=== PATIENT | male | born 1985 | race Caucasian/White ===

== ENCOUNTER 2016-11-04 14:57 | Emergency (ER) | payer SELFPAY ==
[2016-11-04 14:58] LABS: BASOPHIL% 0.7 % (0-2.5); EOSINOPHIL# 0.2 X10e3 (0-0.7); EOSINOPHIL% 3.6 % (0.0-7.0); HEMATOCRIT 39.6 % (38.0-50.0); HEMOGLOBIN 13.4 gm/dL (13.0-16.0); LYMPHOCYTE% 32.1 % (17.0-45.0); MEAN CELL VOLUME 92.5 FL (83-96); MEAN CORPUSCULAR HEMOGLOBIN 31.1 PG (28-34); MEAN CORPUSCULAR HGB CONC 33.7 g/dL (30-36); MEAN PLATELET VOLUME 8.8 FL (6.5-11.5); MONOCYTE# 0.6 X10e3 (0-1.0); NEUTROPHIL# 3.4 X10e3 (1.5-7.1); NEUTROPHIL% 54.6 % (40-75); PLATELET COUNT 231 X10e3 (140-420); RED BLOOD COUNT 4.29 X10e (3.90-5.60); RED CELL DISTRIBUTION WIDTH 13.2 % (11.0-15.5); WHITE BLOOD COUNT 6.3 X10e3 (4.0-10.5)
[2016-11-04 15:01] LABS: DIFF IND NO
[2016-11-04 15:20] LABS: ALKALINE PHOSPHATASE 85 U/L (32-92); ALT (SGPT) 17 U/L (10-40); AST (SGOT) 19 U/L (10-42); BILIRUBIN, DIRECT 0.1 mg/dL (0.0-0.2); BILIRUBIN,INDIRECT 0.5 mg/dL (0.0-0.9); BILIRUBIN,TOTAL 0.6 mg/dL (0.2-2.0); BLOOD UREA NITROGEN 13 mg/dL (9-23); BUN/CREATININE RATIO 18.57; CALCIUM SERUM 8.7 mg/dL (8.4-10.2); CARBON DIOXIDE 26 mmol/L (22-31); CHLORIDE 106 mmol/L (100-111); CREATININE SERUM 0.7 mg/dL (0.6-1.4); GLOM FILT RATE Estimated 127.6 mL/min (>60); GLUCOSE FASTING 92 mg/dL (70-110); POTASSIUM 3.9 mmol/L (3.5-5.1); PROTEIN TOTAL SERUM 6.6 g/dL (6.0-8.3); SODIUM 139 mmol/L (135-145)
[2016-11-04 15:24] LABS: ALCOHOL BLOOD <5 mg/dL (0)
[2016-11-04 15:25] LABS: URINE SOURCE CLEAN CATCH
[2016-11-04 15:35] LABS: URINE APPEARANCE TURBID; URINE BILIRUBIN NEG (NEG); URINE BLOOD NEG (NEG); URINE COLOR YELLOW; URINE GLUCOSE NEG (NEG); URINE KETONE NEG (NEG); URINE LEUKOCYTE ESTERASE NEG (NEG); URINE NITRATE NEG (NEG); URINE PH 7.5 (5-8); URINE PROTEIN NEG (NEG); URINE SPECIFIC GRAVITY 1.019 (1.003-1.035); URINE UROBILINOGEN 0.2 MG/DL (NEG)
[2016-11-04 15:41] LABS: CULTURE INDICATED? NO
[2016-11-04 15:45] LABS: AMPHETAMINE NEG (NEG); BARBITURATES NEG (NEG); BENZODIAZEPINES NEG (NEG); COCAINE NEG (NEG); MARIJUANA NEG (NEG); OPIATES NEG (NEG); TRICYCLIC ANTIDEPRESSANTS NEG (NEG); U METHADONE NEG (NEG)
== END 2016-11-04 19:04 | disposition short-term general hospital (02) ==
LOC: CED 14:57
PROVIDERS: Emergency Medicine
DX: F23 Brief psychotic disorder (principal); F17.200 Nicotine dependence, unspecified, uncomplicated; Z90.49 Acquired absence of other specified parts of digestive tract; Z98.890 Other specified postprocedural states
CPT/HCPCS: 36415; 80048; 80076; 80307; 81003; 85025; 99285; G0480

== ENCOUNTER 2016-11-04 21:19 | Inpatient (IN) | payer OTHER ==
--- NOTE | ~2016-11-04 | PA ---
Unit #: [id number] #: [id number] Patient: FOUZIA DOUGHERTY [id number] [facility] [address] [place] [address] [id number] MR#: [id number] NAME: FOUZIA DOUGHERTY ROOM: 31 Age: 31 Sex: M Admission Date: 11/04/2016 : 1985 Date of Assessment: Attending Physician: Nate Rivera M.D. Admitting Physician: Nate Rivera M.D. PSYCHIATRIC ASSESSMENT INFORMANTS The patient reliability, fair informant and chart reliability, good. CHIEF COMPLAINT Suicidal ideation with plan. HISTORY OF PRESENT ILLNESS Fouzia Dougherty is a 31-year-old male, seen on , presented with the above-mentioned complaint. The patient was brought by police, found at [employer] parking lot. Reported that he is homeless and unemployed. The patient reported he came here about 2 weeks ago from [place]. The patient's mother, sister, and 2 children are in [place]. The patient reported not knowing his dad. The patient has a tox screen clear and unclear about any use of any drugs. The patient would laugh inappropriately, guarded, and paranoid. Possibly, he has a history of schizophrenia, bipolar disorder, and psychosis. The patient stated that he was diagnosed at [facility] a long time ago. The patient used the phrase long time ago frequently. The patient's thoughts were somewhat disorganized, guarded, and paranoid. The patient reported that he abused his dog as a child by hitting him and choking him. The patient's thoughts were somewhat circumstantial, guarded, paranoid, disorganized behavior, and psychotic symptoms and needing admission at this time for psychiatric stabilization. The patient was placed on 72-hour hold. PAST PSYCHIATRIC HISTORY Unremarkable. FAMILY HISTORY AND SOCIAL HISTORY Unavailable at this time. Poor support system. Moved from [place], according to the intake reports. Family psychiatric illness unknown. MEDICAL HISTORY Unremarkable for any chronic medical illness. Musculoskeletal; muscle strength and tone, no atrophy or abnormal movement. Gait normal. MEDICATION HISTORY None. ALLERGIES No known drug allergies. SUBSTANCE ABUSE HISTORY History of using opioids and methamphetamine at age 31. Unit #: [id number] #: [id number] Patient: FOUZIA DOUGHERTY REVIEW OF SYSTEMS HEENT: Eyes, clear. Ears, nose, mouth, and throat; clear. CARDIOVASCULAR: Unremarkable. RESPIRATORY: Unremarkable. GI: Unremarkable. : Unremarkable. SKIN: Unremarkable. LYMPH NODE: Unremarkable. NEUROLOGIC: Unremarkable. ENDOCRINE: Unremarkable. HEMATOLOGIC: Unremarkable. ALLERGIC/IMMUNOLOGIC: Unremarkable. MUSCULOSKELETAL: Muscle strength and tone, no atrophy or abnormal movement. Gait normal. MENTAL STATUS EXAMINATION CONSTITUTIONAL: Measurement of vital signs; temperature 97.7, heart rate 70, respiratory rate 18, oxygen saturation 100%, and blood pressure 108/59. Height 5 feet 7 inches and weight 134 pounds. GENERAL APPEARANCE: Hygiene and grooming, dressed in hospital attire. The patient did not show any facial deformity. MUSCULOSKELETAL: Please see above. PSYCHIATRIC EXAMINATION Description of speech, slow. Description of thought process, circumstantial. Description of association; guarded, paranoid, mood lability, disorganized speech and thought process, and paranoid. Denied any thoughts of harming self or others. Description of the patient's judgment: Concerning everyday activity, poor. Social situation, poor. Concerning psychiatric condition, poor. Complete mental status examination; oriented in place and person. Attention span and concentration, poor. Language, able to name object and repeat phrases. Fund of knowledge, poor. Vocabulary, fair. Mood and affect, sad and dysphoric. Insight and judgment, impaired. ASSETS AND LIABILITIES Assets, the patient is articulate and able to take care of his ADL with prompts. Liability, history of psychosis and depression. ADMITTING DIAGNOSES Psychiatric: Psychosis, not otherwise specified, F29.0; rule out schizophrenia, F20.0; and rule out bipolar mood disorder, F31.89. Secondary diagnosis: Deferred. Medical diagnosis: None. Stressors: Psychosocial stressors, homelessness, and poor support system. PSYCHIATRIC PLAN AND TREATMENT GOAL AND DISCHARGE PLAN 1. Advised to admit the patient on the inpatient unit. Provide safe, supportive, and structured environment. 2. Ordered labs; CBC, CMP, UA, and UDS. 3. Precaution for psychosis. 4. The patient to be started on Zyprexa and Cogentin combination and trazodone for sleep. The patient to attend all the programing, group Unit #: [id number] #: [id number] Patient: FOUZIA DOUGHERTY therapy, individual therapy, and structured milieu. TREATMENT GOAL To attain euthymic mood, gain insight into his problem, and learn coping skills. DISCHARGE PLAN Plan to stabilize the patient and consider followup in outpatient program. ESTIMATED LENGTH OF STAY 3 to 5 days. Dictated by... Maria Antonia Baptiste/virgilio TD: 11/05/2016 16:04 JOB #: [id number] PSYCHIATRIC ASSESSMENT Page 1 of 1 X Nate Rivera MD X PSYCHIATRIC ASSESSMENT
--- NOTE | ~2016-11-04 | HP ---
Unit #: [id number] #: [id number] Patient: FOUZIA HICKEY [id number] [place] [address] [id number] MR#: [id number] NAME: FOUZIA HICKEY ROOM: P131 Age: 31 Sex: M Admission Date: 11/04/2016 : 1985 Attending Physician: Nate Rivera M.D. Admitting Physician: Nate Rivera M.D. Primary Care Physician: Primary Care Physician No HISTORY AND PHYSICAL HISTORY OF PRESENT ILLNESS Fouzia is a 31 year old admitted to [address] [place] [address] after he was found naked at [facility]. PAST MEDICAL HISTORY Nothing significant. PAST SURGICAL HISTORY Nothing reported. ALLERGIES Penicillin, Haldol, Thorazine. SOCIAL HISTORY Smokes 1 pack per day. Drinks alcohol frequently and has a history of illicit substance abuse to include amphetamines, opioids and crack cocaine. He also uses drugs IV. FAMILY HISTORY Medically noncontributory. REVIEW OF SYSTEMS He does not answer questions appropriately. There are no reports of nausea, vomiting or diarrhea. He has had no cough or increased temperature. CURRENT MEDICATIONS 1. Milk of Magnesia p.r.n. 2. Maalox p.r.n. 3. Tylenol p.r.n. 4. Trazodone 75 mg q.h.s. 5. Cogentin 1 mg b.i.d. 6. Zyprexa 10 mg b.i.d. PHYSICAL EXAMINATION GENERAL: Alert, well-nourished, in no apparent distress. VITAL SIGNS: Blood pressure 110/60, heart rate 80, respirations 16, temperature 98.6. WEIGHT: 134. HEIGHT: 5 feet 7 inches. SKIN: Warm and dry without rash or lesion. HEENT: Normocephalic. TMs not viewed. Oral and nasal passages clear. Conjunctivae clear. PERRLA. EOMs intact. NECK: Supple without lymphadenopathy or thyromegaly. Unit #: [id number] #: [id number] Patient: FOUZIA HICKEY HEART: Regular rate and rhythm without murmur. LUNGS: Clear. ABDOMEN: Soft, nontender. : Not done. EXTREMITIES: No evidence of cyanosis, clubbing or edema. Moves all without focal deficit. NEUROLOGICAL: Grossly within normal limits. Cranial Nerves: II: Visual mandujano are intact. III, IV AND : Extraocular movements are intact. Pupils are equal, round and reactive to light. V: Facial sensation is grossly normal. VII: Facial movements and expression are normal. VIII: Auditory acuity grossly intact. IX, X: Uvula is midline. Phonation is normal. XI: Patient shrugs shoulders and turns head normally. XII: Tongue protrudes in the midline. Sensory and Motor Function: Sensory and motor sensation is grossly normal. Motor: moves all extremities well. Coordination: Gait is normal. Deep Tendon Reflexes: Intact. IMPRESSION Psychiatric admission. RECOMMENDATIONS PSYCHIATRIC: Per psychiatrist. MEDICAL: See no contraindications to participate in facility's activities. MEDICAL PROGNOSIS Good. MEDICAL CONDITION Stable. Dictated by... Camila Rosa P.A.-C. for Maria Antonia Cain/arin TD: 11/05/2016 21:28 JOB #: [id number] HISTORY AND PHYSICAL Page 1 of 1 X Camila Rosa HISTORY AND PHYSICAL
--- NOTE | ~2016-11-04 | PN ---
Unit #: [id number] #: [id number] Patient: FOUZIA HICKEY [id number] [facility] [address] [place] [address] [id number] MR#: [id number] NAME: FOUZIA HICKEY ROOM: [facility] Age: 31 Sex: M Admission Date: 11/04/2016 : 1985 Attending Physician: Nate Rivera M.D. Admitting Physician: Nate Rivera M.D. Primary Care Physician: Primary Care Physician Sydni REYNOSO NOTES DATE 11/07/2016 DISCUSSION Mr. Tate is a 31-year-old male, seen on 11/07/2016. The patient interviewed, chart reviewed, and obtained information from the nursing staff. The patient tolerating medication fairly well. VTAL SIGNS, 98.0, 57, 16, and 101/57. The patient guarded, paranoid, disorganized behavior, disorganized thought process, isolative, guarded, withdrawn. REVIEW OF SYSTEMS Complete review of systems unremarkable. MENTAL STATUS EXAMINATION General appearance: Patient dressed casually, tall, well-built. Attention span and concentration, poor. Oriented to place and person. Mood and affect, labile. Speech, monotone. Thought process, concrete. The patient disorganized, guarded, paranoid, isolative, still having psychotic symptoms. Recent and remote memory, poor. Insight and judgment, poor. DIAGNOSIS Psychosis, NOS. ASSESSMENT/PLAN Advised to continue with the combination of trazodone, Cogentin, and Zyprexa, and plan to add Haldol 5 mg twice daily for psychosis. Continue with the inpatient programming at this time. Dictated by... Maria Antonia Baptiste/claire TD: 11/09/2016 08:26 JOB #: [id number] Unit #: [id number] #: [id number] Patient: FOUZIA HICKEY PROGRESS NOTES Page 1 of 1 X Nate Rivera MD PROGRESS NOTE
--- NOTE | ~2016-11-04 | DS ---
Unit #: [id number] #: [id number] Patient: FOUZIA HICKEY [id number] [facility] [address] [place] [address] [id number] MR#: [id number] NAME: FOUZIA HICKEY ROOM: [facility] Age: 31 Sex: M Admission Date: 11/04/2016 : 1985 Discharge Date: 11/08/2016 Attending Physician: Nate Rivera M.D. Primary Care Physician: Primary Care Physician No DISCHARGE SUMMARY REASON FOR ADMISSION Suicidal ideation. DIAGNOSTIC STUDIES LABORATORY RESULTS: Unremarkable. HOSPITAL COURSE The patient was admitted to inpatient unit on 11/04/2016 and discharged on 11/08/2016. The patient was treated on the inpatient unit with expressive therapy, medication management, psychoeducation, and psychotherapy. The patient was compliant, cooperative, redirectable, responded well with the above modalities of treatment and following medications. DISCHARGE MEDICATIONS Trazodone 75 mg at bedtime for sleep, Zyprexa 10 mg b.i.d. for psychosis, and Cogentin 1 mg b.i.d. for EPS symptom. DISCHARGE DIAGNOSES Psychiatric: 1. Psychosis, not otherwise specified, F29.0. 2. Rule out schizophrenia, F20.0. 3. Rule out bipolar mood disorder. Secondary diagnosis: Deferred. Medical diagnosis: None. Stressors: Psychosocial stressors. DISCHARGE INSTRUCTIONS The patient is to follow up in outpatient program as per social media analyst. CONDITION ON DISCHARGE The patient was pleasant and cooperative. Denied any psychotic symptom or any suicidal ideation. PROGNOSIS Guarded. DIET AND ACTIVITY As tolerated. Dictated by... Unit #: [id number] #: [id number] Patient: FOUZIA HICKEY Maria Antonia Baptiste/virgilio TD: 11/08/2016 18:33 JOB #: [id number] DISCHARGE SUMMARY Page 1 of 1 X Nate Rivera MD X DISCHARGE SUMMARY
--- NOTE | ~2016-11-04 | PN ---
Unit #: [id number] #: [id number] Patient: FOUZIA HICKEY [id number] [facility] [address] [place] [address] [id number] MR#: [id number] NAME: FOUZIA HICKEY ROOM: 31 Age: 31 Sex: M Admission Date: 11/04/2016 : 1985 Attending Physician: Nate Rivera M.D. Admitting Physician: Nate Rivera M.D. Primary Care Physician: Primary Care Physician Sydni RAMSAY PROGRESS NOTES DATE 11/06/2016 DISCUSSION Fouzia Hickey is a 31-year-old male seen on 11/07/2016. The patient interviewed, chart reviewed. Obtained information from nursing staff. The patient's vital signs 97.8, 61, 102/57. The patient was seclusive, , guarded, flat affect, compliant with medication. The patient thoughts were disorganized, superficial, guarded, isolative, withdrawn. The patient continues to be withdrawn, isolative denied any thoughts of harming self or others but needing redirection. Complete review of systems unremarkable. Complete review of systems unremarkable. MENTAL STATUS EXAMINATION General appearance, the patient dressed casually. Attention span and concentration poor. Oriented to self. Mood and affect flat. Speech monotone. Thought process concrete. Association guarded, paranoid but denied any thoughts of harming self or others. Recent and remote memory poor. Insight and judgement poor. DIAGNOSES 1. Psychosis NOS 2. Rule out schizophrenia ASSESSMENT/PLAN Advise to continue with current medication with a plan to consider adding haloperidol 5 mg twice daily. Continue with the inpatient programming for safety. Dictated by... Maria Antonia Baptiste/laney TD: 11/09/2016 04:59 JOB #: [id number] Unit #: [id number] #: [id number] Patient: FOUZIA HICKEY PROGRESS NOTES Page 1 of 1 X Nate Rivera MD X PROGRESS NOTE
== END 2016-11-08 15:29 | disposition home or self-care (01) | DRG 885 ==
LOC: P1S 21:19
DX: F29 Unspecified psychosis not due to a substance or known physiological condition (principal); F31.89 Other bipolar disorder; F20.0 Paranoid schizophrenia; Z59.0 Homelessness; F17.210 Nicotine dependence, cigarettes, uncomplicated; Z88.0 Allergy status to penicillin